=== PATIENT | male | born 1980 | race Caucasian/White ===

== ENCOUNTER 2023-06-11 18:52 | Emergency (ER) | payer OTHER, SELFPAY ==
[2023-06-11 18:54] VITALS: BP 128/74
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
== END 2023-06-11 22:50 | disposition home or self-care (01) ==
LOC: EMR 18:52
PROVIDERS: EMERGENCY PHYSICIAN Emergency Medicine; FAMILY PHYSICIAN Family Medicine
DX: S06.0XAA Concussion with loss of consciousness status unknown, initial encounter (principal); S00.83XA Contusion of other part of head, initial encounter; S00.03XA Contusion of scalp, initial encounter; S10.93XA Contusion of unspecified part of neck, initial encounter; M47.12 Other spondylosis with myelopathy, cervical region; V43.52XA Car driver injured in collision with other type car in traffic accident, initial encounter; Y92.410 Unspecified street and highway as the place of occurrence of the external cause; Z87.442 Personal history of urinary calculi
CPT/HCPCS: 99284; 70450; 72125

== ENCOUNTER 2023-07-03 21:06 | Emergency (ER) | payer OTHER, SELFPAY ==
[2023-07-03 21:10] VITALS: BP 134/79
[2023-07-03 21:35] LABS: % Basophils 0.7 % (0-2); % Eosinophils 2.3 % (0-6); % Immature Granulocytes 0.2 % (0-0.5); % Lymphocytes 33.8 % (20.5-51.1); % Monocytes 9.3 % (1.7-9.3); % Neutrophils 53.7 % (42.2-75.2); Absolute Basophils 0.1 10^3/uL (0-0.2); Absolute Eosinophils 0.2 10^3/uL (0-0.7); Absolute Lymphocytes 3.3 10^3/uL (1.2-3.4); Absolute Monocytes 0.9 10^3/uL (0.1-0.6); Absolute Neutrophils 5.3 10^3/uL (1.4-6.5); Hematocrit 38.8 % (39.0-52.0); Hemoglobin 13.4 g/dL (13.0-18.0); Mean Corp Hgb Conc. 34.5 g/dL (33.0-37.0); Mean Corpuscular Hgb 28.8 pg (27.0-31.0); Mean Corpuscular Volume 83.4 fL (80.0-94.0); Mean Platelet Volume 9.5 fL (7.4-10.4); Nucleated Red Blood Cells % 0 % (-); Platelet Count 295 10^3/uL (130-400); Red Blood Cell Count 4.65 10^6/uL (4.70-6.10); Red Cell Dist. Width 12.7 % (11.5-14.5); Urine Albumin Trace (Neg - Trace); Urine Bilirubin Negative (Negative); Urine Character Clear (Clear); Urine Color Yellow; Urine Glucose Negative (Negative); Urine Ketone Negative (Negative); Urine Leukocyte Negative (Negative); Urine Nitrite Negative (Negative); Urine Occult Blood 4+ (Negative); Urine Specific Gravity 1.015 (<1.030); Urine Urobilinogen Negative (Neg - 1+); Urine pH 6.5 (5.0-9.0); White Blood Cell Count 9.9 10^3/uL (4.8-10.8)
[2023-07-03 21:44] LABS: Urine Bacteria Few (Negative); Urine Red Blood Cell 30-40 /HPF (0-2); Urine White Cell 0-2 /HPF (0-5)
[2023-07-03 21:55] LABS: ALT (SGPT) 13 U/L (0-50); AST (SGOT) 20 U/L (17-59); Alkaline Phosphatase 49 U/L (38-126); Blood Urea Nitrogen 20 mg/dl (9-20); Calcium 9.8 mg/dl (8.4-10.2); Carbon Dioxide 26 mmol/L (22-30); Chloride 104 mmol/L (98-107); Glucose 106 mg/dl (70-99); Potassium 4.3 mmol/L (3.5-5.1); Sodium 138 mmol/L (135-145); Total Bilirubin 0.5 mg/dl (0.2-1.3); Total Protein 6.5 g/dl (6.3-8.2); eGFR > 60.00
--- NOTE | 2023-07-03 22:16 | ED.GENMED ---
History of Present Illness
<GERALD Moreno - Last Filed: 07/03/23 22:39>
General
Chief Complaint: Male Genito-Urinary Symptoms
Source: patient
Time Seen by Provider: 07/03/23 21:59
Nursing documentation reviewed up to this point in time: agreed with
Travel History
Have you had any contact with someone who has COVID-19?: No
Do you have any symptoms of coronavirus? Fever > 100 degrees, chills, cough, shortness of breath, sore throat, loss of taste or smell, muscle aches, or headache?: No
History of Present Illness
History of Present Illness:
42 y/o M presents to ED c/o hematuria x 3 days. Patient reports his urine has been bloody for the past 3 days. He is also reporting testicular pain bilaterally since last night, left more than right. Patient states the pain comes and go. He
describes the pain as sore and an dull ache. He says the pain feels as if it is behind his testicles. Patient does have lower back pain but he states he thinks it is likely due to him shoveling snow all day. He denies abdominal pain, flank pain,
dysuria, frequency, urgency, incontinence, penile swelling/erythema, nausea, vomiting, fever, chills, fatigue, weight loss, back pain, or penile pain. Patient has a history of kidney stones and hematuria. His most recent infection was this past
January in which he was having hematuria and flank pain. He was seen here at the ED and given antibiotics and urology referral. Patient also reports he has has blood in his urine a few times in the past few years in which he went to his PCP. They
advised him to see a urologist. Patient was not able to see urology because he lost his insurance but states he has insurance now and will schedule to see one.
If applicable-neuro sx onset
Onset of symptoms known: Yes
Date of onset of symptoms: 07/01/23
Past History
<GERALD Moreno - Last Filed: 07/03/23 22:39>
Past History
ED Past Medical History: Other (Pancreatitis, kidney stones)
ED Past Surgical History: Orthopedic and Tonsilectomy
Patient has exhibited threatening behavior?: No
Social History
Tobacco: Non-smoker
Alcohol: None
Drug: Marijuana (Only)
Personal:
Living: with family
Employment: Employed
Family History
Family History: Other
Review of Systems
<GERALD Moreno - Last Filed: 07/03/23 22:39>
Review of Systems
Allergies reviewed?: Yes
All Other Systems: ROS reviewed and negative except as documented in HPI and ROS
Constitutional: Reports no symptoms
EENT: Reports no symptoms
Respiratory: Reports no symptoms
Cardiac: Reports no symptoms
ABD/GI: Reports no symptoms
: Reports dark urine and other (hematuria, testicular pain)
Musculoskeletal: Reports back pain
Skin: Reports no symptoms
Neurological: Reports no symptoms
Endocrine: Reports no symptoms
Hematologic/Lymphatic: Reports no symptoms
Psychiatric: Reports no symptoms
Phy Exam
<GERALD Moreno - Last Filed: 07/03/23 22:39>
General Physical Exam
General Presentation: well appearing and no apparent distress
General age: appears stated age
General Skin: warm and dry
General Habitus: normal
General Mental: alert
General Hydration: appears well hydrated
Eye Exam
Eye Exam: PERRL, EOMI and conjunctiva normal
Cardiovascular Exam
Cardiovascular Exam: regular rate/rhythm, no edema, no gallop, no murmur and normal peripheral pulses
Pulmonary Exam
Pulmonary Exam: lungs clear, no respiratory distress, no rales, no crackles and no rhonchi
Gastrointestinal Exam
Gastrointestinal Exam: normal bowel sounds, non tender, soft and non distended
Palpation: left upper quadrant: No tenderness, left lower quadrant: No tenderness, right upper quadrant: No tenderness and right lower quadrant: No tenderness
Neurological Exam
Neurological Exam: alert and oriented x3
Musculoskeletal Exam
Musculoskeletal Exam: full ROM and other (negative CVA tenderness)
Skin Exam
Skin Exam: normal color, warm/dry and no rash
Psychiatric Exam
Psychiatric Exam: normal mood/affect
Course
<GERALD Moreno - Last Filed: 07/03/23 22:39>
Orders/Labs/Results
Orders:
Orders
07/03/23 21:25
Complete Blood Count/With Diff Urgent
Comprehensive Metabolic Panel Urgent
Creatine Phosphokinase Urgent
Comment: ADDED
Urinalysis Reflex To Culture Urgent
Date Specimen was Collected: 07/03/23
Time Specimen was Collected: 21:15
Urine Microscopic Reflex Cult Urgent
07/03/23 22:44
Electrocardiogram (*1) Urgent
Reason for Study: Abdominal Pain
Troponin I Urgent
07/04/23 00:08
CT Abd/pel Without Iv Or Oral Urgent
Comment:
Reason For Exam: hematuria back pain
Abnormal Lab Results
07/03/23
21:25
RBC 4.65 L 10^6/uL
(4.70-6.10)
Hct 38.8 L %
(39.0-52.0)
Absolute Monos (auto) 0.9 H 10^3/uL
(0.1-0.6)
Glucose 106 H mg/dl
(70-99)
Ur Occult Blood Reflex 4+ A
(Negative)
Urine RBC 30-40 A /HPF
(0-2)
Urine Bacteria (Reflex) Few A
(Negative)
07/03/23 21:25
07/03/23 21:25
Vital Signs
Initial and Last Documented VS:
Initial Vital Signs
Temp Pulse Resp BP Pulse Ox
97.8 F 62 20 134/79 97
07/03/23 21:10 07/03/23 21:10 07/03/23 21:10 07/03/23 21:10 07/03/23 21:10
Last Documented Vital Signs
Temp Pulse Resp BP Pulse Ox
97.8 F 62 20 134/79 97
07/03/23 21:10 07/03/23 21:10 07/03/23 21:10 07/03/23 21:10 07/03/23 21:10
<Avtar Reynolds, DO - Last Filed: 07/04/23 01:21>
Orders/Labs/Results
Orders:
Orders
07/03/23 21:25
Complete Blood Count/With Diff Urgent
Comprehensive Metabolic Panel Urgent
Creatine Phosphokinase Urgent
Comment: ADDED
Urinalysis Reflex To Culture Urgent
Date Specimen was Collected: 07/03/23
Time Specimen was Collected: 21:15
Urine Microscopic Reflex Cult Urgent
07/03/23 22:44
Electrocardiogram (*1) Urgent
Reason for Study: Abdominal Pain
Troponin I Urgent
07/04/23 00:08
CT Abd/pel Without Iv Or Oral Urgent
Comment:
Reason For Exam: hematuria back pain
Abnormal Lab Results
07/03/23
21:25
RBC 4.65 L 10^6/uL
(4.70-6.10)
Hct 38.8 L %
(39.0-52.0)
Absolute Monos (auto) 0.9 H 10^3/uL
(0.1-0.6)
Glucose 106 H mg/dl
(70-99)
Ur Occult Blood Reflex 4+ A
(Negative)
Urine RBC 30-40 A /HPF
(0-2)
Urine Bacteria (Reflex) Few A
(Negative)
07/03/23 21:25
07/03/23 21:25
Vital Signs
Initial and Last Documented VS:
Initial Vital Signs
Temp Pulse Resp BP Pulse Ox
97.8 F 62 20 134/79 97
07/03/23 21:10 07/03/23 21:10 07/03/23 21:10 07/03/23 21:10 07/03/23 21:10
Last Documented Vital Signs
Temp Pulse Resp BP Pulse Ox
97.8 F 62 20 134/79 97
07/03/23 21:10 07/03/23 21:10 07/03/23 21:10 07/03/23 21:10 07/03/23 21:10
<GERALD Moreno - Last Filed: 07/03/23 22:39>
MDM/Problems Addressed
Differential Diagnosis Includes:
Nephrolithiasis
UTI
Pyelonephritis
Kidney injury/nephritis
Malignancy
MDM/Problems Addressed:
Urine shows 4+ occult blood, few bacteria and elevated RBC. UTI less likely given no leuk esterase or nitrites. Patient is not showing flank/abdominal pain concerning for nephrolithiasis. No flank pain, fever/chills or systemic symptoms concerning
for pyelonephritis. Kidney injury less likely given normal kidney function on labs. Will order CT of abdomen/pelvis.
<GERALD Moreno - Last Filed: 07/03/23 22:39>
*Critical Care Note
Total Time (30-74mins, 75-104mins- exclusive of procedures): Not Applicable
<Avtar Reynolds DO - Last Filed: 07/04/23 01:21>
Update Note
Update Note:
CT ABDOMEN AND PELVIS noncontrast
Comparison: 12/20/2022.
IMPRESSION:
6 mm stone at the left UPJ causing mild hydronephrosis.
Several additional nonobstructing stones within both kidneys, the largest measuring 1 cm in the inferior pole on the left.
Results faxed/electronically transmitted to the ER and radiology department at 12:49 AM ET.
ED Attending Note
<GERALD Moreno - Last Filed: 07/03/23 22:39>
-
Portions of this chart may have been created with voice recognition software.� Occasional wrong word or��sound alike� substitutions may have occurred due to the inherent limitations of voice recognition software.
<Avtar Reynolds DO - Last Filed: 07/04/23 01:21>
ED Attending Note
Patient seen and examined by attending physician: Yes
I performed the substantive portion of visit, reviewed & personally made and approve the management plan that is documented in note by myself or SEVEN.: Yes
ED Attending Note:
Pleasant 42-year-old male presents with hematuria for 3 days. He has been having hematuria off and on since he had a kidney stone a while back. Today he states that his hematuria actually lightened up but then came back. He does report mild
testicular pain stating that the pain is 'behind the testicular '. Denies any penile discharge. In January, patient had hematuria at was given antibiotics and urology referral. He did not follow-up with urology due to insurance issues. Patient
has no fever, chills, nausea or vomiting. Patient was seen in conjunction with the PA student. I have reviewed and agree with the history and treatment plan presented. On my independent physical exam, patient is awake, alert, and oriented x3, no
acute distress. Heart is regular rate rhythm. Lungs are clear to auscultation bilaterally, no wheezes rales or rhonchi present. Abdomen is soft nontender nondistended. No CVA tenderness. Moves all 4 extremities. Skin is warm and dry.
Discharge Plan
Departure
Patient Disposition: Home (Routine Discharge)
Date of Disposition: 07/04/23
Time of Disposition: 01:16
Patient with high blood pressure during this ER visit?: Yes
Condition: Good
Discharge Problem:
Kidney stone
Instructions: Blood in the Urine (Hematuria), Adult (DC), How to Strain Your Urine, BLOOD PRESSURE
Prescriptions:
New
tamsulosin [Flomax] 0.4 mg capsule
0.4 mg PO DAILY Qty: 7 0RF
diclofenac sodium 75 mg tablet,delayed release (DR/EC)
75 mg PO BID Qty: 10 0RF
Referrals:
Jose Rasmussen MD [Family Provider] -
August Macario MD [Active] - Next open appointment
Activity Restrictions/Additional Instructions:
It was a pleasure meeting you and taking part in your care. We hope for your continued healing and wellness.
Please read discharge instructions in their entirety. However, they are for general education and may not describe your exact diagnosis at discharge. Information on your ER visit and medical conditions were discussed with you along with appropriate
follow up information...
If indicated, please take your medications as instructed and indicated on discharge paperwork.
Please schedule a follow up appointment as directed. Call to schedule an appointment
Please return to the emergency department with ANY change in, persisting, or worsening of symptoms. If any of your symptoms do not improve, or persist, or become more severe within 6-12 hours, please return to the emergency department for further
care.
Please return to the emergency department if you develop a headache, neck pain/stiffness, fever greater than 100.4F, chest pain, shortness of breath, persistent nausea, vomiting, slurred speech, difficulty walking, numbness/tingling, weakness, signs
of infection or any other symptoms that are worrisome to you.
If you have any questions or concerns please do not hesitate to call the Hospital at .
Interventions
Interventions:
*Risk Screen - Suicide Last Done: 07/04/23 00:19
*General Assessment Last Done: 07/03/23 21:10
*Neglect/Abuse Screening Last Done: 07/03/23 21:10
ED- Fall Risk Assessment Last Done: 07/03/23 21:10
*ED COVID-19 Vaccine History Last Done: 07/03/23 21:10
ED-Male Genitourinary Assessment Last Done: 07/04/23 00:17
[2023-07-04 01:13] LABS: Creatine Phosphokinase 155 U/L (55-170)
== END 2023-07-04 01:26 | disposition home or self-care (01) ==
LOC: EMR 21:06
PROVIDERS: Emergency Medicine; EMERGENCY PHYSICIAN Student in an Organized Health Care Education/Training Program; FAMILY PHYSICIAN Family Medicine
DX: N13.2 Hydronephrosis with renal and ureteral calculous obstruction (principal); Z87.442 Personal history of urinary calculi; R03.0 Elevated blood-pressure reading, without diagnosis of hypertension
CPT/HCPCS: 99284; 74176; 80053; 81003; 81015; 82550; 85025

== ENCOUNTER 2024-01-04 12:29 | Emergency (ER) | payer SELFPAY ==
[2024-01-04 12:30] VITALS: BP 145/95
[2024-01-04 12:51] VITALS: BP 136/75
[2024-01-04] MEDS: ZOFRAN 4 MG IV (12:57)
[2024-01-04] MEDS: TORADOL 30 MG IV (12:57)
[2024-01-04] MEDS: NSS 1000 IV (12:58)
[2024-01-04 13:00] VITALS: BP 131/81
[2024-01-04 13:20] LABS: % Basophils 0.5 % (0-2); % Eosinophils 0.7 % (0-6); % Immature Granulocytes 0.2 % (0-0.5); % Lymphocytes 21.4 % (20.5-51.1); % Monocytes 7.4 % (1.7-9.3); % Neutrophils 69.8 % (42.2-75.2); Absolute Basophils 0.1 10^3/uL (0-0.2); Absolute Eosinophils 0.1 10^3/uL (0-0.7); Absolute Lymphocytes 2.1 10^3/uL (1.2-3.4); Absolute Monocytes 0.7 10^3/uL (0.1-0.6); Absolute Neutrophils 6.9 10^3/uL (1.4-6.5); Hematocrit 40.4 % (39.0-52.0); Mean Corp Hgb Conc. 34.7 g/dL (33.0-37.0); Mean Corpuscular Hgb 28.6 pg (27.0-31.0); Mean Corpuscular Volume 82.6 fL (80.0-94.0); Nucleated Red Blood Cells % 0 % (-); Platelet Count 307 10^3/uL (130-400); Red Blood Cell Count 4.89 10^6/uL (4.70-6.10); Red Cell Dist. Width 12.3 % (11.5-14.5); White Blood Cell Count 9.9 10^3/uL (4.8-10.8)
[2024-01-04 13:36] LABS: ALT (SGPT) 15 U/L (0-50); AST (SGOT) 21 U/L (17-59); Albumin 4.8 g/dl (3.5-5.0); Alkaline Phosphatase 60 U/L (38-126); Blood Urea Nitrogen 13 mg/dl (9-20); Calcium 10.2 mg/dl (8.4-10.2); Carbon Dioxide 22 mmol/L (22-30); Chloride 104 mmol/L (98-107); Glucose 103 mg/dl (70-99); Potassium 3.9 mmol/L (3.5-5.1); Sodium 138 mmol/L (135-145); Total Protein 6.9 g/dl (6.3-8.2); eGFR > 60.00
[2024-01-04 14:04] LABS: Lipase 138 U/L (23-300)
--- NOTE | 2024-01-04 14:04 | ED.GENMED ---
History of Present Illness
General
Chief Complaint: Male Genito-Urinary Symptoms
Source: patient
Time Seen by Provider: 01/04/24 12:53
History of Present Illness
History of Present Illness:
43-year-old male with past medical history of kidney stones presenting to the emergency department for evaluation of severe left-sided lower abdominal pain radiating towards the left testicle and left flank accompanied with 1 episode of hematuria
and persistent nausea and vomiting. Patient states that this has been ongoing intermittently for the last few weeks. Feels similar to previous kidney stones but states today much more severe. He has been attempting to manage with medications at
home. Denies any fevers, chills, rigors. Notes due to loss of insurance previously was supposed to see urology but never made an appointment to follow-up with them again. He does have insurance presently.
Past History
Past History
ED Past Medical History: Other (Pancreatitis, kidney stones)
ED Past Surgical History: Orthopedic and Tonsilectomy
Patient has exhibited threatening behavior?: No
Social History
Tobacco: Non-smoker
Alcohol: None
Drug: Marijuana (Only)
Personal:
Living: with family
Employment: Employed
Family History
Family History: Other
Review of Systems
Review of Systems
All Other Systems: ROS reviewed and negative except as documented in HPI and ROS
Phy Exam
Physical Exam
Physical Exam:
GENERAL: Alert , actively retching and vomiting, appears in quite amount of pain
EYE: Clear conjunctiva
NECK: Supple
ENT: o/p clr, mmm.
CARDIAC: Regular rate and rhythm .
LUNGS: Clear breath sounds bilaterally, no acute respiratory distress, no wheezes/rales/rhonchi
ABDOMEN: Soft, moderate left CVA tenderness
Genitourinary: No testicular edema or erythema. No hernias appreciated
NEUROLOGICAL: Alert and oriented, no focal neuro deficits
SKIN: Warm and dry, skin intact.
MUSCULOSKELETAL: well perfused.
PSYCH: Normal and appropriate interaction.
Scores
Heart Failure Risk
Heart Failure Risk Score: Not Applicable
Heart Score for Chest Pain Patients
STEMI patient?: Not applicable
Withdrawal Assessment of Alcohol
Withdrawal Assessment Completed?: Not applicable
Course
Orders/Labs/Results
Orders:
Orders
01/04/24 12:53
CT Abd/pel Without Iv Or Oral Urgent
Comment:
Reason For Exam: lower abd pain, hematuria, hx stones
Urinalysis Reflex To Culture Urgent
Date Specimen was Collected: 01/04/24
Time Specimen was Collected: 12:53
0.9% Sodium Chloride 1000 ml [Nss] 1,000 ml IV BOLUS
Ketorolac [Toradol] 30 mg IV NOW STA
Ondansetron Injectable [Zofran] 4 mg IV NOW STA
01/04/24 12:54
Complete Blood Count/With Diff Urgent
Comprehensive Metabolic Panel Urgent
Lipase Urgent
Comment: LIPASE ADDED ON BY FLOOR 1PM 01-04-24
01/04/24 13:02
Add On- LAB Urgent
Tests Added?: Lipase
Abnormal Lab Results
01/04/24
12:54
Absolute Neuts (auto) 6.9 H 10^3/uL
(1.4-6.5)
Absolute Monos (auto) 0.7 H 10^3/uL
(0.1-0.6)
Glucose 103 H mg/dl
(70-99)
01/04/24 12:54
01/04/24 12:54
Vital Signs
Initial and Last Documented VS:
Initial Vital Signs
Temp Pulse Resp BP Pulse Ox
98 F 73 18 145/95 99
01/04/24 12:30 01/04/24 12:30 01/04/24 12:30 01/04/24 12:30 01/04/24 12:30
Last Documented Vital Signs
Temp Pulse Resp BP Pulse Ox
98 F 69 19 108/61 98
01/04/24 12:30 01/04/24 13:00 01/04/24 13:00 01/04/24 14:16 01/04/24 14:16
MDM/Problems Addressed
Differential Diagnosis Includes:
Renal/ureteral colic, UTI, I do not have concern for testicular torsion
MDM/Problems Addressed:
43-year-old male presenting the emergency department for evaluation of severe left-sided lower abdomen and flank pain. History of kidney stones in the past with symptoms that feel similar. Patient states a couple weeks ago he did urinate a small
blood clot but has not seen any since. No fevers or infectious symptoms. Will check labs, urine and CT imaging. Symptomatic control with Zofran and Toradol. Reassessment following
Chronic conditions affecting care: Other (Kidney stones)
Acute Exacerbation and/or Progression of Chronic Illness: Other (Kidney stones)
*Radiology
Radiology exam reviewed: radiology read reviewed
*Pulse Oximetry
Patient hypoxic: no
*Critical Care Note
Total Time (30-74mins, 75-104mins- exclusive of procedures): Not Applicable
Patient Management
Discussion with other providers: Supervisor Mending
Escalation/DeEscalation of care consider admission/obs:
Patient CT scan shows moderate left hydronephrosis secondary to a 6.4 mm calculus at the left UPJ. There is moderate hydronephrosis. There are also multiple stones within the bilateral kidneys. Due to patient's history as well as the size of the
kidney stone I did notify urology. Patient can call office for follow-up visit. Prescription for naproxen, Vicodin, Flomax and Zofran sent to pharmacy. Patient aware of return precautions to the ER.
ED Attending Note
-
Portions of this chart may have been created with voice recognition software.� Occasional wrong word or��sound alike� substitutions may have occurred due to the inherent limitations of voice recognition software.
Discharge Plan
Departure
Patient Disposition: Home (Routine Discharge)
Date of Disposition: 01/04/24
Time of Disposition: 14:04
Patient with high blood pressure during this ER visit?: No
Discharge Problem:
Ureterolithiasis, Colic, ureteral, Kidney stones
Instructions: Kidney Stone, Adult ED
Prescriptions:
New
tamsulosin [Flomax] 0.4 mg capsule
0.4 mg PO DAILY Qty: 15 0RF
hydrocodone-acetaminophen 5-300 mg tablet
1 tab PO BID PRN (Reason: Pain) Qty: 8 0RF
naproxen 500 mg tablet
500 mg PO BID PRN (Reason: Pain) Qty: 15 0RF
ondansetron 4 mg tablet,disintegrating
4 mg PO TIDPRN PRN (Reason: nausea/vomiting) Qty: 8 0RF
No Action
tamsulosin [Flomax] 0.4 mg capsule
0.4 mg PO DAILY Qty: 7 0RF
diclofenac sodium 75 mg tablet,delayed release (DR/EC)
75 mg PO BID Qty: 10 0RF
Referrals:
Jose Rasmussen MD [Family Provider] -
Remy Lozano Jr., MD [Active] - (Urology - please call for appointment IVANNA)
Interventions
Interventions:
*Risk Screen - Suicide Last Done: 01/04/24 12:30
*General Assessment Last Done: 01/04/24 12:30
*Neglect/Abuse Screening Last Done: 01/04/24 12:30
ED- Fall Risk Assessment Last Done: 01/04/24 14:22
*ED COVID-19 Vaccine History Last Done: 01/04/24 12:38
*Nursing Disposition Last Done: 01/04/24 14:22
ED-Male Genitourinary Assessment Last Done: 01/04/24 13:02
Discharge Date and Time
Discharge Date/Time: 01/04/24 14:36
Print Language: [place]
[2024-01-04 14:16] VITALS: BP 108/61
== END 2024-01-04 14:36 | disposition home or self-care (01) ==
LOC: EMR 12:29
PROVIDERS: EMERGENCY PHYSICIAN Emergency Medicine; FAMILY PHYSICIAN Family Medicine
DX: N13.2 Hydronephrosis with renal and ureteral calculous obstruction (principal); Z87.442 Personal history of urinary calculi
CPT/HCPCS: 99284; 96374; 96375; 96361; 74176; 80053; 83690; 85025

== ENCOUNTER 2024-01-09 06:27 | Day surgery (SDC) | payer OTHER, SELFPAY ==
[2024-01-09] VITALS (10 sets, daily range): BP systolic 104–134; BP diastolic 54–105; BMI 23.0
[2024-01-09] MEDS: NORMOSOL-R/PLASMALYTE-A 1000 IV (13:28)
[2024-01-09] MEDS: Pyridium 200 MG PO (17:14)
== END 2024-01-09 18:25 | disposition home or self-care (01) ==
LOC: SDS 06:27
PROVIDERS: ATTENDING PHYSICIAN Specialist
DX: N13.2 Hydronephrosis with renal and ureteral calculous obstruction (principal)
CPT/HCPCS: 52356; 74018; 76000; 82365; C2617

== ENCOUNTER 2024-10-16 02:41 | Emergency (ER) | payer OTHER, SELFPAY ==
[2024-10-16 02:43] VITALS: BP 140/88
[2024-10-16 03:51] LABS: % Basophils 0.7 % (0-2); % Immature Granulocytes 0.3 % (0-0.5); % Lymphocytes 32.2 % (20.5-51.1); % Monocytes 10.6 % (1.7-9.3); % Neutrophils 54.2 % (42.2-75.2); Absolute Basophils 0.1 10^3/uL (0-0.2); Absolute Eosinophils 0.1 10^3/uL (0-0.7); Absolute Lymphocytes 2.3 10^3/uL (1.2-3.4); Absolute Monocytes 0.8 10^3/uL (0.1-0.6); Absolute Neutrophils 3.9 10^3/uL (1.4-6.5); Hematocrit 42.1 % (39.0-52.0); Hemoglobin 14.4 g/dL (13.0-18.0); Mean Corp Hgb Conc. 34.2 g/dL (33.0-37.0); Mean Corpuscular Volume 84.7 fL (80.0-94.0); Mean Platelet Volume 9.3 fL (7.4-10.4); Nucleated Red Blood Cells % 0 % (-); Platelet Count 264 10^3/uL (130-400); Red Blood Cell Count 4.97 10^6/uL (4.70-6.10); Red Cell Dist. Width 12.6 % (11.5-14.5); White Blood Cell Count 7.2 10^3/uL (4.8-10.8)
[2024-10-16 04:05] LABS: Blood Urea Nitrogen 18 mg/dl (9-20); Calcium 9.8 mg/dl (8.4-10.2); Carbon Dioxide 25 mmol/L (22-30); Chloride 110 mmol/L (98-107); Glucose 96 mg/dl (70-99); Potassium 4.3 mmol/L (3.5-5.1); Sodium 141 mmol/L (135-145); eGFR > 60.00
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
[2024-10-16 04:37] LABS: TSH Reflex To Free T4 5.97 uIU/ml (0.47-4.68)
[2024-10-16 05:02] VITALS: BP 131/75
[2024-10-16 05:04] VITALS: BMI 27.6
[2024-10-16 05:06] LABS: Free T4 1.06 ng/dl (0.78-2.19)
== END 2024-10-16 05:06 | disposition home or self-care (01) ==
LOC: EMR 02:41
PROVIDERS: EMERGENCY PHYSICIAN Emergency Medicine
DX: E07.9 Disorder of thyroid, unspecified (principal); Z87.11 Personal history of peptic ulcer disease; Z87.19 Personal history of other diseases of the digestive system; Z87.442 Personal history of urinary calculi
CPT/HCPCS: 99284; 70491; 80048; 84439; 84443; 85025; Q9967

== ENCOUNTER 2024-10-26 11:12 | Emergency (ER) | payer SELFPAY ==
[2024-10-26 11:17] VITALS: BP 143/75
[2024-10-26 11:41] LABS: % Basophils 0.6 % (0-2); % Eosinophils 0.4 % (0-6); % Immature Granulocytes 0.2 % (0-0.5); % Lymphocytes 9.8 % (20.5-51.1); % Monocytes 10.5 % (1.7-9.3); % Neutrophils 78.5 % (42.2-75.2); Absolute Basophils 0.1 10^3/uL (0-0.2); Absolute Eosinophils 0.1 10^3/uL (0-0.7); Absolute Lymphocytes 1.2 10^3/uL (1.2-3.4); Absolute Monocytes 1.3 10^3/uL (0.1-0.6); Absolute Neutrophils 9.5 10^3/uL (1.4-6.5); Hematocrit 46.3 % (39.0-52.0); Hemoglobin 15.6 g/dL (13.0-18.0); Mean Corp Hgb Conc. 33.7 g/dL (33.0-37.0); Mean Corpuscular Hgb 28.9 pg (27.0-31.0); Mean Corpuscular Volume 85.9 fL (80.0-94.0); Mean Platelet Volume 8.9 fL (7.4-10.4); Nucleated Red Blood Cells % 0 % (-); Platelet Count 261 10^3/uL (130-400); Red Blood Cell Count 5.39 10^6/uL (4.70-6.10); Red Cell Dist. Width 12.7 % (11.5-14.5); White Blood Cell Count 12.1 10^3/uL (4.8-10.8)
[2024-10-26 12:01] LABS: COVID-19 Antigen Negative (Negative)
[2024-10-26 12:05] LABS: ALT (SGPT) 17 U/L (0-50); AST (SGOT) 19 U/L (17-59); Albumin 4.6 g/dl (3.5-5.0); Alkaline Phosphatase 51 U/L (38-126); Blood Urea Nitrogen 13 mg/dl (9-20); Calcium 10.1 mg/dl (8.4-10.2); Carbon Dioxide 27 mmol/L (22-30); Chloride 107 mmol/L (98-107); Glucose 99 mg/dl (70-99); Potassium 4.7 mmol/L (3.5-5.1); Sodium 142 mmol/L (135-145); Total Bilirubin 0.5 mg/dl (0.2-1.3); Total Protein 7.5 g/dl (6.3-8.2); eGFR > 60.00
--- NOTE | 2024-10-26 13:47 | ED.GENMED ---
History of Present Illness
General
Chief Complaint: Swallowing Problem
Source: patient
Exam Limitations: none
Time Seen by Provider: 10/26/24 13:29
Nursing documentation reviewed up to this point in time: agreed with
History of Present Illness
History of Present Illness:
Patient is a 44-year-old male presents to the ER for evaluation. Patient complains of cough since yesterday and feels like he has an upper respiratory infection. He has not checked his temperature. He has not taken any medicine for symptoms. He
denies any shortness of breath does complain of cough with deep breath. He does complain of chills. He smokes marijuana.
Patient reports he was here at the end of September,October 16 and diagnosed with a right thyroid nodule at that time. Records show a thyroid nodule measuring 3.5 x 3.2 x 4.7 cm patient expresses ENT however has not done so yet.
He denies any sore throat. No swallowing issues presently.
Past History
Past History
ED Past Medical History: Other (Pancreatitis, kidney stones)
ED Past Surgical History: Orthopedic, Tonsilectomy and Urological (Kidney stone removal)
Patient has exhibited threatening behavior?: No
Social History
Tobacco: Non-smoker
Alcohol: None
Drug: Marijuana (Only)
Personal:
Living: with family
Employment: Employed
Family History
Family History: Other
Review of Systems
Review of Systems
Allergies reviewed?: Yes
All Other Systems: ROS reviewed and negative except as documented in HPI and ROS
Constitutional: Reports chills; Denies fever or fatigue
Respiratory: Reports cough; Denies trouble breathing
Cardiac: Reports no symptoms
ABD/GI: Reports no symptoms
: Reports no symptoms
Musculoskeletal: Reports no symptoms
Skin: Reports no symptoms
Neurological: Reports no symptoms
Hematologic/Lymphatic: Reports no symptoms
Psychiatric: Reports no symptoms
Phy Exam
General Physical Exam
General Presentation: no apparent distress
General age: appears stated age
General Skin: warm and dry
General Habitus: normal
General Mental: alert
General Hydration: appears well hydrated
Cardiovascular Exam
Cardiovascular Exam: regular rate/rhythm, no murmur and normal peripheral pulses
Pulmonary Exam
Pulmonary Exam: lungs clear, no respiratory distress and other (+ cough )
Neurological Exam
Neurological Exam: alert and oriented x3
Musculoskeletal Exam
Musculoskeletal Exam: full ROM
Skin Exam
Skin Exam: normal color and warm/dry
Psychiatric Exam
Psychiatric Exam: normal mood/affect
Course
Orders/Labs/Results
Orders:
Orders
10/26/24 11:19
Chest [CR Chest - 2 Views ] Urgent
Comment:
Reason For Exam: cough
10/26/24 11:31
CBC/With Diff [Complete Blood Count/With Diff] Urgent
CMP [Comprehensive Metabolic Panel] Urgent
COVID-19 Antigen Urgent
Source: Nasal Swab
Influenza A+B Rapid Molecular Urgent
SIVA Source: Nasal Swab
Specimen Description:
10/26/24 14:00
Albuterol Nebs [Ventolin Nebules] 2.5 mg INH R NOW STA
Abnormal Lab Results
10/26/24
11:31
WBC 12.1 H 10^3/uL
(4.8-10.8)
Absolute Neuts (auto) 9.5 H 10^3/uL
(1.4-6.5)
Absolute Monos (auto) 1.3 H 10^3/uL
(0.1-0.6)
Neutrophils % 78.5 H %
(42.2-75.2)
Lymphocytes % 9.8 L %
(20.5-51.1)
Monocytes % 10.5 H %
(1.7-9.3)
10/26/24 11:31
10/26/24 11:31
Vital Signs
Initial and Last Documented VS:
Initial Vital Signs
Temp Pulse Resp BP Pulse Ox
98.6 F 90 15 143/75 98
10/26/24 11:17 10/26/24 11:17 10/26/24 11:17 10/26/24 11:17 10/26/24 11:17
Last Documented Vital Signs
Temp Pulse Resp BP Pulse Ox
98.6 F 90 15 129/71 98
10/26/24 11:17 10/26/24 11:17 10/26/24 11:17 10/26/24 14:12 10/26/24 14:15
MDM/Problems Addressed
Differential Diagnosis Includes:
Not limited to COVID, influenza, bronchitis/URI, pneumonia
MDM/Problems Addressed:
Symptoms are consistent with viral/bronchitis. Patient not hypoxic lungs are clear audible cough chest x-ray negative COVID flu negative. He was given a neb. Increased coughing that he does feel like he is getting more secretions. Will DC with
albuterol inhaler. In addition patient is supposed to see ENT for previous thyroid nodule. He has no difficulty swallowing this. He currently does not have a family doctor at this time will DC with family practice clinic
*Radiology
Radiology exam reviewed: radiology read reviewed
*Pulse Oximetry
Patient hypoxic: no
*Critical Care Note
Total Time (30-74mins, 75-104mins- exclusive of procedures): Not Applicable
ED Attending Note
-
Portions of this chart may have been created with voice recognition software.� Occasional wrong word or��sound alike� substitutions may have occurred due to the inherent limitations of voice recognition software.
Discharge Plan
Departure
Patient Disposition: Home (Routine Discharge)
Date of Disposition: 10/26/24
Time of Disposition: 14:59
Patient with high blood pressure during this ER visit?: Yes
Condition: Fair
Covid-19: Not Applicable
Discharge Problem:
Bronchitis
Instructions: Bronchitis in adults - ED discharge instructions, BLOOD PRESSURE
Prescriptions:
New
ProAir RespiClick 90 mcg/actuation aerosol powdr breath activated
2 inh inhalation Q6H PRN (Reason: shortness of breath or wheezing) Qty: 1 0RF
albuterol sulfate [Ventolin HFA] 90 mcg/actuation HFA aerosol inhaler
2 puff inhalation Q6H PRN (Reason: shortness of breath or wheezing) Qty: 6.7 0RF
No Action
tamsulosin [Flomax] 0.4 mg capsule
0.4 mg PO DAILY Qty: 7 0RF
diclofenac sodium 75 mg tablet,delayed release (DR/EC)
75 mg PO BID Qty: 10 0RF
tamsulosin [Flomax] 0.4 mg capsule
0.4 mg PO DAILY Qty: 15 0RF
hydrocodone-acetaminophen 5-300 mg tablet
1 tab PO BID PRN (Reason: Pain) Qty: 8 0RF
naproxen 500 mg tablet
500 mg PO BID PRN (Reason: Pain) Qty: 15 0RF
ondansetron 4 mg tablet,disintegrating
4 mg PO TIDPRN PRN (Reason: nausea/vomiting) Qty: 8 0RF
Referrals:
[facility] [Outside]
UNKNOWN - PT DOES,NOT KNOW [Family Provider]
Activity Restrictions/Additional Instructions:
As discussed your x-ray was negative for pneumonia. Be sure to get plenty rest of stable hydrated. You May use inhaler as needed .
this was sent to your pharmacy.
Follow-up closely with family doctor
return if any worsening of symptoms
Interventions
Interventions:
*Risk Screen - Suicide Last Done: 10/26/24 11:17
*General Assessment Last Done: 10/26/24 11:17
*Neglect/Abuse Screening Last Done: 10/26/24 11:17
*ED- Fall Risk Assessment Last Done: 10/26/24 12:33
*ED COVID-19 Vaccine History Last Done: 10/26/24 12:33
ED-EENT Assessment Last Done: 10/26/24 12:33
IR-Pjicpp-Bhjxfbgsja Assessment Last Done: 10/26/24 12:33
ED- Pulmonary Assessment Last Done: 10/26/24 12:33
ED- Neurological Assessment Last Done: 10/26/24 12:33
Discharge Date and Time
Print Language: TELUGU
[2024-10-26 14:10] VITALS: BMI 22.1
[2024-10-26 14:12] VITALS: BP 129/71
[2024-10-26] MEDS: VENTOLIN NEBULES 2.5 MG INH (14:13)
[2024-10-26 15:00] VITALS: BP 130/81
== END 2024-10-26 15:21 | disposition home or self-care (01) ==
LOC: EMR 11:12
PROVIDERS: EMERGENCY PHYSICIAN Emergency Medicine
DX: J40 Bronchitis, not specified as acute or chronic (principal); F12.90 Cannabis use, unspecified, uncomplicated; E04.1 Nontoxic single thyroid nodule; Z87.442 Personal history of urinary calculi
CPT/HCPCS: 99283; 94640; 71046; 80053; 85025; 87502; 87811

== ENCOUNTER 2025-03-20 10:43 | Emergency (ER) | payer OTHER, SELFPAY ==
[2025-03-20 10:44] VITALS: BP 130/84
[2025-03-20 11:07] VITALS: BMI 22.5
[2025-03-20 12:14] VITALS: BP 144/75
--- NOTE | 2025-03-20 12:38 | ED.GENMED ---
History of Present Illness
General
Chief Complaint: Musculo-Skeletal Complaint
Source: patient
Exam Limitations: none
Time Seen by Provider: 03/20/25 12:12
Nursing documentation reviewed up to this point in time: agreed with
History of Present Illness
History of Present Illness:
44-year-old male presents to the ER for evaluation. Last night patient slipped out of his truck and hit his anterior chest on a piece of steel. He complains of some pain with deep breath denies any shortness of breath. Denies any other injury.
He denies any abdominal pain nausea vomiting. He is not on blood thinners. He denies hitting his head no other injuries
Past History
Past History
ED Past Medical History: Other (Pancreatitis, kidney stones)
ED Past Surgical History: Orthopedic, Tonsilectomy and Urological (Kidney stone removal)
Patient has exhibited threatening behavior?: No
Social History
Tobacco: Non-smoker
Alcohol: None
Drug: Marijuana (Only)
Personal:
Living: with family
Employment: Employed
Family History
Family History: Other
Phy Exam
General Physical Exam
General Presentation: no apparent distress
General age: appears stated age
General Skin: warm and dry
General Habitus: normal
General Mental: alert
General Hydration: appears well hydrated
Cardiovascular Exam
Cardiovascular Exam: regular rate/rhythm, no murmur and normal peripheral pulses
Pulmonary Exam
Pulmonary Exam: lungs clear, no respiratory distress and other (Normal inspection to chest no crepitus or ecchymosis no abrasions mildly tender to anterior left lower rib)
Gastrointestinal Exam
Gastrointestinal Exam: non tender, soft and other (Normal inspection to abdomen no abrasions or ecchymosis abdomen nontender no right upper or left upper quadrant tenderness)
Neurological Exam
Neurological Exam: alert and oriented x3
Musculoskeletal Exam
Musculoskeletal Exam: full ROM
Skin Exam
Skin Exam: normal color and warm/dry
Psychiatric Exam
Psychiatric Exam: normal mood/affect
Course
Orders/Labs/Results
Orders:
Orders
03/20/25 10:46
Ribs, Left 3 View W/PA Chest CR [CR Ribs-left 3 Vw W/pa Chest] Urgent
Comment:
Reason For Exam: injury
Vital Signs
Initial and Last Documented VS:
Initial Vital Signs
Temp Pulse Resp BP Pulse Ox
98.4 F 70 16 130/84 98
03/20/25 10:44 03/20/25 10:44 03/20/25 10:44 03/20/25 10:44 03/20/25 10:44
Last Documented Vital Signs
Temp Pulse Resp BP Pulse Ox
98.4 F 67 15 144/75 97
03/20/25 10:44 03/20/25 12:14 03/20/25 12:14 03/20/25 12:14 03/20/25 12:39
MDM/Problems Addressed
Differential Diagnosis Includes:
Not limited to rib contusion versus fracture
MDM/Problems Addressed:
Symptoms are consistent with rib contusion x-rays are negative lungs are clear no crepitus or ecchymosis. Patient with no abdominal tenderness he is very well-appearing mild discomfort with deep inspiration we will treat for rib contusion I did
discuss with patient that at times it is possible that there is a small fracture however treatment the same will DC with Tylenol. Patient does have a history of ulcers in the past we discussed with patient to avoid ibuprofen Tylenol for pain ice
and heat and outpatient follow-up.
*Radiology
Radiology exam reviewed: radiology read reviewed
*Pulse Oximetry
SaO2: 97
Oxygen Mode of Delivery: Room air
Patient hypoxic: no
*Critical Care Note
Total Time (30-74mins, 75-104mins- exclusive of procedures): Not Applicable
ED Attending Note
-
Portions of this chart may have been created with voice recognition software.� Occasional wrong word or��sound alike� substitutions may have occurred due to the inherent limitations of voice recognition software.
Discharge Plan
Departure
Patient Disposition: Home (Routine Discharge)
Date of Disposition: 03/20/25
Time of Disposition: 12:39
Patient with high blood pressure during this ER visit?: Yes
Condition: Fair
Covid-19: Not Applicable
Discharge Problem:
Contusion of rib
Instructions: Rib fracture or bruised rib - ED (DC), BLOOD PRESSURE
Prescriptions:
No Action
tamsulosin [Flomax] 0.4 mg capsule
0.4 mg PO DAILY Qty: 7 0RF
diclofenac sodium 75 mg tablet,delayed release (DR/EC)
75 mg PO BID Qty: 10 0RF
tamsulosin [Flomax] 0.4 mg capsule
0.4 mg PO DAILY Qty: 15 0RF
hydrocodone-acetaminophen 5-300 mg tablet
1 tab PO BID PRN (Reason: Pain) Qty: 8 0RF
naproxen 500 mg tablet
500 mg PO BID PRN (Reason: Pain) Qty: 15 0RF
ondansetron 4 mg tablet,disintegrating
4 mg PO TIDPRN PRN (Reason: nausea/vomiting) Qty: 8 0RF
ProAir RespiClick 90 mcg/actuation aerosol powdr breath activated
2 inh inhalation Q6H PRN (Reason: shortness of breath or wheezing) Qty: 1 0RF
albuterol sulfate [Ventolin HFA] 90 mcg/actuation HFA aerosol inhaler
2 puff inhalation Q6H PRN (Reason: shortness of breath or wheezing) Qty: 6.7 0RF
Referrals:
UNKNOWN - PT DOES,NOT KNOW [Family Provider]
Activity Restrictions/Additional Instructions:
Ice the affected area for the next 24 hours 20 minutes at a time several times a day. Tylenol as needed. Follow-up with your family doctor the next several days. Do deep breathing exercises every hour as discussed. With your history please
avoid NSAIDS .
return if any worsening of symptoms
Interventions
Interventions:
*Risk Screen - Suicide Last Done: 03/20/25 10:47
*Neglect/Abuse Screening Last Done: 03/20/25 10:47
*ED- Fall Risk Assessment Last Done: 03/20/25 11:08
*ED COVID-19 Vaccine History Last Done: 03/20/25 11:08
*ED Influenza Vaccine History Last Done: 03/20/25 11:08
ED-Musculoskeletal Assessment Last Done: 03/20/25 11:09
Discharge Date and Time
Print Language: UPPER SORBIAN
== END 2025-03-20 12:51 | disposition home or self-care (01) ==
LOC: EMR 10:43
PROVIDERS: EMERGENCY PHYSICIAN Emergency Medicine
DX: S20.219A Contusion of unspecified front wall of thorax, initial encounter (principal); W19.XXXA Unspecified fall, initial encounter; Z87.19 Personal history of other diseases of the digestive system; Z87.442 Personal history of urinary calculi
CPT/HCPCS: 99284; 71101

== ENCOUNTER → 2025-05-04 14:31 | Outpatient (REF) | payer BC, SELFPAY | LOC: HWRAD 14:31 | PROVIDERS: ATTENDING PHYSICIAN Nurse Practitioner Family | DX: E04.1 Nontoxic single thyroid nodule (principal) | CPT/HCPCS: 76536 ==